=== PATIENT | female | born 1965 | race Caucasian/White ===

== ENCOUNTER 2017-06-29 11:15 | Inpatient (IN) | payer OTHER ==
[2017-06-29] MEDS ORDERED: SODIUM CHLORIDE 0.9% 2,000 ML IV STA (11:34)
[2017-06-29] MEDS ORDERED: ONDANSETRON 4 MG/2 ML VIAL IVP STA (11:34)
[2017-06-29] MEDS ORDERED: LORazepam 2 MG/ML INJ IV STA (11:35)
[2017-06-29 12:19] LABS: Basophils % (A) 0 %; Eosinophils # (A) 0.1 k/uL (0-0.7); Eosinophils % (A) 1 %; HCT 50.2 % (34.0-46.0); HGB 17.8 gm/dL (11.4-16.0); Lymphocytes # (A) 1.9 k/uL (1.0-4.8); Lymphocytes % (A) 10 %; MCH 31.2 pg (25.0-35.0); MCHC 35.4 g/dL (31.0-37.0); MCV 88.3 fL (80.0-100.0); Mean Platelet Volume 7.3; Monocytes # (A) 0.6 k/uL (0-1.0); Monocytes % (A) 3 %; Neutrophils # (A) 16.2 k/uL (1.3-7.7); Neutrophils % (A) 86 %; Platelet Count 271 k/uL (150-450); RBC 5.69 m/uL (3.80-5.40); RDW 12.4 % (11.5-15.5)
--- NOTE | 2017-06-29 12:30 | ED ---
Nausea/Vomiting/Diarrhea HPI - General Chief complaint: Nausea/Vomiting/Diarrhea Stated complaint: Vomiting Time Seen by Provider: 06/29/17 11:27 Source: patient, RN notes reviewed Mode of arrival: wheelchair Limitations: no limitations - History of Present Illness Initial comments: Is a 51-year-old female presents emergency Department with chief complaint nausea vomiting. She states his been going on since Wednesday night into Wednesday. She states that she's had problems with this in the past she states normally last 3-5 days and she believes this is related to her blood sugar. She states that her blood sugar is low. Patient denies any headache, dizziness , chest pain, shortness of breath, fever or chills. She's had no diarrhea no constipation denies any sick contacts. - Related Data Home Medications Medication Instructions Recorded Confirmed Black Cohosh 540 mg PO DAILY 06/29/17 06/29/17 Cholecalciferol [Vitamin D3] 1,000 unit PO DAILY 06/29/17 06/29/17 Multivitamins, Thera [Multivitamin 1 tab PO DAILY 06/29/17 06/29/17 (formulary)] Merrill-3 Fatty Acids/Fish Oil [Fish 1 cap PO DAILY 06/29/17 06/29/17 Oil 1,000 mg Softgel] Vitamin E 100 unit PO DAILY 06/29/17 06/29/17 diphenhydrAMINE [Benadryl] 25 mg PO QID PRN 06/29/17 06/29/17 Allergies Allergy/AdvReac Type Severity Reaction Status Date / Time No Known Allergies Allergy Verified 06/29/17 12:42 Review of Systems ROS Statement: Those systems with pertinent positive or pertinent negative responses have been documented in the HPI. ROS Other: All systems not noted in ROS Statement are negative. Past Medical History Additional Past Medical History / Comment(s): low blood sugar History of Any Multi-Drug Resistant Organisms: None Reported Past Surgical History: No Surgical Hx Reported Past Psychological History: No Psychological Hx Reported Smoking Status: Never smoker Past Alcohol Use History: None Reported Past Drug Use History: None Reported General Exam Limitations: no limitations General appearance: alert, in no apparent distress, anxious Head exam: Present: atraumatic, normocephalic, normal inspection Eye exam: Present: normal appearance, PERRL, EOMI. Absent: scleral icterus, conjunctival injection, periorbital swelling ENT exam: Present: normal exam, mucous membranes moist Neck exam: Present: normal inspection, full ROM. Absent: tenderness, meningismus, lymphadenopathy Respiratory exam: Present: normal lung sounds bilaterally. Absent: respiratory distress, wheezes, rales, rhonchi, stridor Cardiovascular Exam: Present: regular rate, normal rhythm, normal heart sounds. Absent: systolic murmur, diastolic murmur, rubs, gallop, clicks GI/Abdominal exam: Present: soft, normal bowel sounds. Absent: distended, tenderness, guarding, rebound, rigid Neurological exam: Present: alert, oriented X3, CN II-XII intact, reflexes normal. Absent: motor sensory deficit Skin exam: Present: warm, dry, intact, normal color. Absent: rash Course Vital Signs 06/29/17 06/29/17 06/29/17 11:15 13:47 14:37 Temperature 98 F Pulse Rate 99 97 89 Respiratory 20 18 18 Rate Blood Pressure 137/90 189/94 202/92 O2 Sat by Pulse 98 98 96 Oximetry Medical Decision Making - Medical Decision Making 51-year-old female presented for nausea vomiting. Patient's and intractable nausea vomiting. She's been given some medications in the ER still feels nauseated. Patient is found to be hypertensive, dehydrated and hemoconcentrated. Patient will be admitted at this time. - Lab Data Result diagrams: 06/29/17 12:04 06/29/17 12:04 Lab Results 06/29/17 06/29/17 06/29/17 Range/Units 12:04 12:04 12:09 WBC 19.0 H (3.8-10.6) k/uL RBC 5.69 H (3.80-5.40) m/uL Hgb 17.8 H (11.4-16.0) gm/dL Hct 50.2 H (34.0-46.0) % MCV 88.3 (80.0-100.0) fL MCH 31.2 (25.0-35.0) pg MCHC 35.4 (31.0-37.0) g/dL RDW 12.4 (11.5-15.5) % Plt Count 271 (150-450) k/uL Neutrophils % 86 % Lymphocytes % 10 % Monocytes % 3 % Eosinophils % 1 % Basophils % 0 % Neutrophils # 16.2 H (1.3-7.7) k/uL Lymphocytes # 1.9 (1.0-4.8) k/uL Monocytes # 0.6 (0-1.0) k/uL Eosinophils # 0.1 (0-0.7) k/uL Basophils # 0.0 (0-0.2) k/uL Sodium 141 (137-145) mmol/L Potassium 4.0 (3.5-5.1) mmol/L Chloride 106 (98-107) mmol/L Carbon Dioxide 15 L (22-30) mmol/L Anion Gap 20 mmol/L BUN 26 H (7-17) mg/dL Creatinine 0.83 (0.52-1.04) mg/dL Est GFR (CKD-EPI)AfAm >90 (>60 ml/min/1.73 sqM) Est GFR (CKD-EPI)NonAf 81 (>60 ml/min/1.73 sqM) Glucose 119 H (74-99) mg/dL POC Glucose (mg/dL) 115 H (75-99) mg/dL POC Glu Turret Lathe Operator ID Plasma Lactic Acid Tj (0.7-2.0) mmol/L Calcium 11.0 H (8.4-10.2) mg/dL Total Bilirubin 1.0 (0.2-1.3) mg/dL AST 41 H (14-36) U/L ALT 32 (9-52) U/L Alkaline Phosphatase 115 (38-126) U/L Total Protein 8.1 (6.3-8.2) g/dL Albumin 5.2 H (3.5-5.0) g/dL Amylase 96 (30-110) U/L Lipase 125 (23-300) U/L Urine Color Urine Appearance (Clear) Urine pH (5.0-8.0) Ur Specific [place] (1.001-1.035) Urine Protein (Negative) Urine Glucose (UA) (Negative) Urine Ketones (Negative) Urine Blood (Negative) Urine Nitrite (Negative) Urine Bilirubin (Negative) Urine Urobilinogen (<2.0) mg/dL Ur Leukocyte Esterase (Negative) Urine RBC (0-5) /hpf Urine WBC (0-5) /hpf Ur Squamous Epith Cells (0-4) /hpf Urine Bacteria (None) /hpf Urine Mucus (None) /hpf 06/29/17 06/29/17 Range/Units 13:51 14:05 WBC (3.8-10.6) k/uL RBC (3.80-5.40) m/uL Hgb (11.4-16.0) gm/dL Hct (34.0-46.0) % MCV (80.0-100.0) fL MCH (25.0-35.0) pg MCHC (31.0-37.0) g/dL RDW (11.5-15.5) % Plt Count (150-450) k/uL Neutrophils % % Lymphocytes % % Monocytes % % Eosinophils % % Basophils % % Neutrophils # (1.3-7.7) k/uL Lymphocytes # (1.0-4.8) k/uL Monocytes # (0-1.0) k/uL Eosinophils # (0-0.7) k/uL Basophils # (0-0.2) k/uL Sodium (137-145) mmol/L Potassium (3.5-5.1) mmol/L Chloride (98-107) mmol/L Carbon Dioxide (22-30) mmol/L Anion Gap mmol/L BUN (7-17) mg/dL Creatinine (0.52-1.04) mg/dL Est GFR (CKD-EPI)AfAm (>60 ml/min/1.73 sqM) Est GFR (CKD-EPI)NonAf (>60 ml/min/1.73 sqM) Glucose (74-99) mg/dL POC Glucose (mg/dL) (75-99) mg/dL POC Glu Turret Lathe Operator ID Plasma Lactic Acid Tj 0.7 (0.7-2.0) mmol/L Calcium (8.4-10.2) mg/dL Total Bilirubin (0.2-1.3) mg/dL AST (14-36) U/L ALT (9-52) U/L Alkaline Phosphatase (38-126) U/L Total Protein (6.3-8.2) g/dL Albumin (3.5-5.0) g/dL Amylase (30-110) U/L Lipase (23-300) U/L Urine Color Yellow Urine Appearance Clear (Clear) Urine pH 6.0 (5.0-8.0) Ur Specific [place] >1.050 H (1.001-1.035) Urine Protein 1+ H (Negative) Urine Glucose (UA) Negative (Negative) Urine Ketones 2+ H (Negative) Urine Blood Small H (Negative) Urine Nitrite Positive H (Negative) Urine Bilirubin Negative (Negative) Urine Urobilinogen <2.0 (<2.0) mg/dL Ur Leukocyte Esterase Negative (Negative) Urine RBC 4 (0-5) /hpf Urine WBC 3 (0-5) /hpf Ur Squamous Epith Cells 3 (0-4) /hpf Urine Bacteria Many H (None) /hpf Urine Mucus Rare H (None) /hpf Disposition Clinical Impression: Intractable nausea and vomiting, Dehydration, Hypertension, Abdominal pain Disposition: ADMITTED IP TO THIS [facility] Condition: Fair Referrals: None,Stated [Primary Care Provider] - 1-2 days
[2017-06-29 12:32] LABS: ALT 32 U/L (9-52); AST 41 U/L (14-36); Albumin 5.2 g/dL (3.5-5.0); Alkaline Phosphatase 115 U/L (38-126); Amylase 96 U/L (30-110); Anion Gap 20 mmol/L; Blood Urea Nitrogen 26 mg/dL (7-17); Carbon Dioxide 15 mmol/L (22-30); Chloride 106 mmol/L (98-107); Glucose 119 mg/dL (74-99); Lipase 125 U/L (23-300); Sodium 141 mmol/L (137-145); Total Protein 8.1 g/dL (6.3-8.2)
[2017-06-29 12:36] LABS: Glucose,Whole Blood 115 mg/dL (75-99)
[2017-06-29] MEDS ORDERED: RX INFO: IV CONTRAST WAS GIVEN 1 EACH MISC MISCELLANE PRN (12:57)
[2017-06-29] MEDS ORDERED: KETOROLAC 30 MG/ML 1 ML VIAL IVP STA (13:55)
[2017-06-29] MEDS ORDERED: SODIUM CHLORIDE 0.9% 500 ML IV ONE (13:55)
--- NOTE | 2017-06-29 13:58 | CT ---
EXAMINATION TYPE: CT abdomen pelvis w con DATE OF EXAM: 06/29/2017 COMPARISON: NONE HISTORY: Patient complains of nausea, vomiting, and generalized body aches. CT DLP: 819 mGycm Automated exposure control for dose reduction was used. TECHNIQUE: Helical acquisition of images from the lung bases through the pelvis have been completed. CONTRAST: Performed without Oral Contrast and with IV Contrast, patient injected with 100 mL of Isovue 300. FINDINGS: LUNG BASES: Emphysematous changes are suspected, thickened parenchymal bands are noted, suspect some emphysematous changes, no pleural or pericardial effusion AORTA: Mild atheromatous changes present LIVER/GB: No significant abnormality is appreciated. PANCREAS: No significant abnormality is seen. SPLEEN: Small calcifications towards the renal hilum may be vascular. ADRENALS: No significant abnormality is seen. KIDNEYS: Focus of decreased attenuation is present at the posterior aspect lower pole of the right ki dney measuring approximately 14 mm. There is cortical thinning also present at the lower pole left ki dney. Nonobstructive calculus may be present within the mid pole left collecting system, suspect a du plicated collecting system is present on the left. REPRODUCTIVE ORGANS: No significant abnormality is seen BOWEL: No significant abnormality is seen. No evident appendicitis. FREE AIR: No Free Air visible. ASCITES: None visible. PELVIC ADENOPATHY: None visualized. RETROPERITONEAL ADENOPATHY: No Retroperitoneal Adenopathy visible. URINARY BLADDER: No significant abnormality is seen. OSSEOUS STRUCTURES: There is a spinal curvature and lumbar spine. IMPRESSION: NO ABNORMALITY TO ACCOUNT FOR PATIENT'S SYMPTOMS. SUSPECT NONOBSTRUCTIVE LEFT NEPHROLITHIASIS. CORTIC AL THINNING LEFT KIDNEY MAY BE DUE TO REFLUX NEPHROPATHY. LOW-ATTENUATION FOCUS IN THE POSTERIOR RIGH T KIDNEY BE DUE TO UNDERLYING ANGIOMYOLIPOMA, RENAL MASS, FOLLOW-UP IS RECOMMENDED. ADDITIONAL FINDIN GS ABOVE.
[2017-06-29 14:26] LABS: Appearance,Urine Clear (Clear); Bacteria,Urine Many /hpf; Bilirubin,Urine Negative (Negative); Blood,Urine Small (Negative); Color,Urine Yellow; Glucose,Urine (UA) Negative (Negative); Ketones,Urine 2+ (Negative); Leukocyte Esterase,Urine Negative (Negative); Mucus,Urine Rare /hpf; Nitrite,Urine Positive (Negative); Protein,Urine 1+ (Negative); RBC,Urine 4 /hpf (0-5); Specific Gravity,Urine >1.050 (1.001-1.035); Squamous Epithelial Cell,Urine 3 /hpf (0-4); Urobilinogen,Urine <2.0 mg/dL (<2.0); WBC,Urine 3 /hpf (0-5)
[2017-06-29] MEDS ORDERED: hydrALAZINE HCL 20 MG/ML 1 ML VIAL IVP STA (14:39)
[2017-06-29] MEDS ORDERED: METOCLOPRAMIDE 5 MG/ML 2 ML VIAL IVP STA (14:40)
[2017-06-29] MEDS ORDERED: NALOXONE 0.4 MG/ML 1 ML VIAL IV PRN (14:43)
[2017-06-29] MEDS ORDERED: LORazepam 2 MG/ML INJ IV PRN (14:43)
[2017-06-29] MEDS ORDERED: KETOROLAC 30 MG/ML 1 ML VIAL IVP PRN (14:43)
[2017-06-29] MEDS ORDERED: ONDANSETRON 4 MG/2 ML VIAL IVP PRN (14:43)
[2017-06-29] MEDS ORDERED: hydrALAZINE HCL 20 MG/ML 1 ML VIAL IVP PRN (14:44)
[2017-06-29] MEDS ORDERED: diphenhydrAMINE 50 MG/ML 1 ML VIAL IVP STA (16:41)
[2017-06-29] MEDS: SODIUM CHLORIDE 0.9% 1,000 ML IV SCH (16:45)
[2017-06-29 17:15] LABS: Amphetamine Screen,Urine Not Detected (NotDetected); Cocaine Screen,Urine Not Detected (NotDetected); Opiate Screen,Urine Not Detected (NotDetected); Phencyclidine Screen,Urine Not Detected (NotDetected); Urn Cannabinoid Scrn Detected (NotDetected)
[2017-06-29 17:16] LABS: Barbiturate Screen,Urine Not Detected (NotDetected); Benzodiazepines Screen,Urine Detected (NotDetected); Methadone Screen, Urine Not Detected (NotDetected); Oxycodone Screen, Urine Not Detected (NotDetected); Tricyclic Antidepressant,Urine Not Detected (NotDetected)
[2017-06-29] MEDS ORDERED: amLODIPine 5 MG TAB PO STA (18:51)
--- NOTE | 2017-06-30 00:53 | P.HPIM ---
History of Present Illness H&P Date: 06/29/17 Chief Complaint: Nausea and vomiting Patient is a 51-year-old female without significant past medical history presents emergency Department with chief complaint nausea vomiting. She states his been going on since Wednesday night into Wednesday. She states that she's had problems with this in the past she states normally last 3-5 days and she believes this is related to her blood sugar. She states that her blood sugar is low. Patient denies any headache, dizziness, chest pain, shortness of breath , fever or chills. She's had no diarrhea no constipation denies any sick contacts. Denied any recent illnesses. UDS is positive for benzodiazepines and marijuana. CT abdomen pelvis showed nonobstructive bowel gas pattern. Left nephrolithiasis nonobstructive. Patient says that her face became red after given a dose of Reglan in the ER. Benadryl was given. Review of Systems Constitutional: Patient denies any fever or chills . No generalized weakness or weight loss. Abdomen: Nausea and vomiting. Denied abdominal pain. No diarrhea. No dysuria. Cardiovascular: Patient denies any chest pain or short of breath no palpitations. Respiratory: patient denied any cough is from production. No shortness of breath Neurologic: Patient denied any numbness or tingling headache. Musculoskeletal: Patient denies any complaints of joint swelling or deformity. Skin: Negative Psychiatric: Anxious Endocrine: No heat or cold intolerance. No recent weight gain. Genitourinary: No dysuria or hematuria. All other 14 point ROS negative except the above Past Medical History Additional Past Medical History / Comment(s): low blood sugar History of Any Multi-Drug Resistant Organisms: None Reported Past Surgical History: No Surgical Hx Reported Past Anesthesia/Blood Transfusion Reactions: No Reported Reaction Past Psychological History: No Psychological Hx Reported Smoking Status: Never smoker Past Alcohol Use History: None Reported Past Drug Use History: None Reported - Past Family History Father History Unknown: Yes Medications and Allergies Home Medications Medication Instructions Recorded Confirmed Type Black Cohosh 540 mg PO DAILY 06/29/17 06/29/17 History Cholecalciferol [Vitamin D3] 1,000 unit PO DAILY 06/29/17 06/29/17 History Ibuprofen [Motrin] 600 mg PO Q8HR PRN 06/29/17 06/29/17 History Multivitamins, Thera [Multivitamin 1 tab PO DAILY 06/29/17 06/29/17 History (formulary)] Adel-3 Fatty Acids/Fish Oil [Fish 1 cap PO DAILY 06/29/17 06/29/17 History Oil 1,000 mg Softgel] Vitamin E 100 unit PO DAILY 06/29/17 06/29/17 History diphenhydrAMINE [Benadryl] 25 mg PO QID PRN 06/29/17 06/29/17 History Allergies Allergy/AdvReac Type Severity Reaction Status Date / Time metoclopramide [From Reglan] AdvReac Confusion Verified 06/29/17 17:27 Physical Exam Vitals: Vital Signs Temp Pulse Pulse Resp BP BP Pulse Ox 06/29/17 18:12 114 H 97 06/29/17 17:03 98.3 F 124 H 20 153/71 96 06/29/17 16:40 98 18 140/70 98 06/29/17 16:16 98.9 F 123 H 20 135/65 95 06/29/17 16:00 124 H 06/29/17 15:45 101 H 20 163/74 96 06/29/17 15:00 98.3 F 124 H 20 153/71 96 06/29/17 14:37 89 18 202/92 96 06/29/17 13:47 97 18 189/94 98 06/29/17 11:15 98 F 99 20 137/90 98 Intake and Output 06/29/17 06/29/17 06/29/17 06:59 14:59 22:59 Other: Voiding Method Toilet Weight 51.256 kg PHYSICAL EXAMINATION: Patient is lying in the bed comfortably, no acute distress, awake alert and oriented.. HEENT: Normocephalic. Neck is supple. Pupils reactive. Nostrils clear. Oral cavity is moist. Ears reveal no drainage. Neck reveals no JVD, carotid bruits, or thyromegaly. CHEST EXAMINATION: Trachea is central. Symmetrical expansion. Lung chau clear to auscultation and percussion. CARDIAC: Normal S1, S2 with no gallops. No murmurs ABDOMEN: Soft. Bowel sounds normal. No organomegaly. No abdominal bruits. Extremities: reveal no edema. No clubbing or cyanosis Neurologically awake, alert, oriented x3 with well-coordinated movements. No focal deficits noted Skin: No rash or skin lesions. Psychiatric: Coperative. Anxious. Nonsuicidal Musculoskeletal: No joint swelling or deformity. Normal range of motion. Results CBC & Chem 7: 06/29/17 12:04 06/29/17 12:04 Labs: Abnormal Lab Results - Last 24 Hours (Table) 06/29/17 06/29/17 06/29/17 Range/Units 12:04 12:04 12:09 WBC 19.0 H (3.8-10.6) k/uL RBC 5.69 H (3.80-5.40) m/uL Hgb 17.8 H (11.4-16.0) gm/dL Hct 50.2 H (34.0-46.0) % Neutrophils # 16.2 H (1.3-7.7) k/uL Carbon Dioxide 15 L (22-30) mmol/L BUN 26 H (7-17) mg/dL Glucose 119 H (74-99) mg/dL POC Glucose (mg/dL) 115 H (75-99) mg/dL Calcium 11.0 H (8.4-10.2) mg/dL AST 41 H (14-36) U/L Albumin 5.2 H (3.5-5.0) g/dL Ur Specific [place] (1.001-1.035) Urine Protein (Negative) Urine Ketones (Negative) Urine Blood (Negative) Urine Nitrite (Negative) Urine Bacteria (None) /hpf Urine Mucus (None) /hpf U Benzodiazepines Scrn (NotDetected) U Marijuana (THC) Screen (NotDetected) 06/29/17 06/29/17 Range/Units 14:05 15:00 WBC (3.8-10.6) k/uL RBC (3.80-5.40) m/uL Hgb (11.4-16.0) gm/dL Hct (34.0-46.0) % Neutrophils # (1.3-7.7) k/uL Carbon Dioxide (22-30) mmol/L BUN (7-17) mg/dL Glucose (74-99) mg/dL POC Glucose (mg/dL) (75-99) mg/dL Calcium (8.4-10.2) mg/dL AST (14-36) U/L Albumin (3.5-5.0) g/dL Ur Specific [place] >1.050 H (1.001-1.035) Urine Protein 1+ H (Negative) Urine Ketones 2+ H (Negative) Urine Blood Small H (Negative) Urine Nitrite Positive H (Negative) Urine Bacteria Many H (None) /hpf Urine Mucus Rare H (None) /hpf U Benzodiazepines Scrn Detected H (NotDetected) U Marijuana (THC) Screen Detected H (NotDetected) Thrombosis Risk Factor Assmnt - Choose All That Apply Any of the Below Risk Factors Present?: Yes Each Factor Represents 1 point: Age 41-60 years Other Risk Factors: No Thrombosis Risk Factor Assessment Total Risk Factor Score: 1 Thrombosis Risk Factor Assessment Level: Low Risk Assessment and Plan Assessment: Intractable nausea and vomiting possible cyclic vomiting from marijuana use Aniongap metabolic acidosis Leukocytosis likely reactive Abnormal urine sample due to dehydration UDS positive for benzodiazepines and marijuana Anxiety Left nonobstructive nephrolithiasis DVT prophylaxis Uncontrolled hypertension on admission Plan: Patient will be continued on symptomatic management for nausea and vomiting. IV hydration and monitor blood pressure. Will repeat labs in the a.m. and monitor for any other source of infection. Patient may need outpatient urology follow-up. Counseled for marijuana abuse. Further recommendations based on the clinical course. Time with Patient: Greater than 30
[2017-06-30] MEDS: SODIUM CHLORIDE 0.9% 1,000 ML IV SCH ×2 (01:48→11:19)
[2017-06-30 07:26] LABS: Basophils # (A) 0.1 k/uL (0-0.2); Basophils % (A) 1 %; Eosinophils % (A) 0 %; HCT 40.8 % (34.0-46.0); Lymphocytes # (A) 2.9 k/uL (1.0-4.8); Lymphocytes % (A) 31 %; MCH 32.3 pg (25.0-35.0); MCHC 34.7 g/dL (31.0-37.0); Mean Platelet Volume 7.1; Monocytes # (A) 0.5 k/uL (0-1.0); Monocytes % (A) 5 %; Neutrophils # (A) 5.7 k/uL (1.3-7.7); Neutrophils % (A) 61 %; Platelet Count 192 k/uL (150-450); RBC 4.39 m/uL (3.80-5.40); RDW 12.3 % (11.5-15.5); WBC 9.4 k/uL (3.8-10.6)
[2017-06-30 07:28] LABS: HGB 14.2 gm/dL (11.4-16.0)
[2017-06-30 07:39] LABS: Anion Gap 10 mmol/L; Blood Urea Nitrogen 19 mg/dL (7-17); Carbon Dioxide 20 mmol/L (22-30); Chloride 113 mmol/L (98-107); Glucose 83 mg/dL (74-99); Potassium 3.5 mmol/L (3.5-5.1); Sodium 143 mmol/L (137-145)
[2017-06-30 08:25] VITALS: TEMP 98
[2017-06-30] MEDS ORDERED: PANTOPRAZOLE 40 MG/10 ML VIAL IV SCH (09:00)
[2017-06-30] MEDS ORDERED: amLODIPine 5 MG TAB PO SCH (09:00)
[2017-06-30 11:40] VITALS: BP 138/78; PULSE 79; RESP 18
--- NOTE | 2017-06-30 12:14 | CDI ---
Last Revision, January 2017 Documentation Clarification Form Date: 06/30/17 1211 From: Carolin Schneider RN, CCDS Admit Date: 06/29/2017 2:41:00 PM Patient Name: Yasmeen Rodriguez Visit Number: [id number] ATTENTION: The Clinical Documentation Specialists (CDI) and [facility] Coding Staff appreciate your assistance in clarifying documentation. Please respond to the clarification below the line at the bottom and electronically sign. The CDI & [facility] Coding staff will review the response and follow-up if needed. Please note: Queries are made part of the Legal Health Record. If you have any questions, please contact the author of this message via ITS. Dr. Heike Tony History/Risk Factors: 06/29/17 H&P: "Intractable nausea and vomiting possible cyclic vomiting from marijuana use. Dehydration" Clinical Indicators: Patients weight is 51.25 kg Patients height is 70 in Calculated BMI is: 16.2 Treatments: Daily weights per MD orders Dietary Consult: not ordered Possible infusion (e.g. TPN): not ordered Administration of vitamins/supplements (e.g. Ensure/Boost): not ordered. Warehouse [employer], physical therapy notes: not ordered In order to capture the severity of condition associated with patient BMI of 16.2, a clinical diagnoses needs to be documented by the physician. Please clarify: Emaciated Cachexia Underweight Protein Calorie Malnutrition, (further specify severity and type- Mild, Moderate , Severe) Other Unable to determine Please continue to document in your progress notes and discharge summary in order to capture severity of illness and risk of mortality. Include clinical findings that support your diagnosis. Underweight MTDD
== END 2017-06-30 12:50 | disposition home or self-care (01) | DRG 918 ==
LOC: EC 11:15 → 6PED 14:41
PROVIDERS: ADMIT Internal Medicine; ATTEND Internal Medicine
DX: T40.7X1A Poisoning by cannabis (derivatives), accidental (unintentional), initial encounter (principal); E87.2 Acidosis; Z68.1 Body mass index [BMI] 19.9 or less, adult; R11.2 Nausea with vomiting, unspecified; F12.10 Cannabis abuse, uncomplicated; D72.829 Elevated white blood cell count, unspecified; E86.0 Dehydration; F41.9 Anxiety disorder, unspecified; I10 Essential (primary) hypertension; N20.0 Calculus of kidney; E16.2 Hypoglycemia, unspecified; Z88.8 Allergy status to other drugs, medicaments and biological substances; R63.6 Underweight
CPT/HCPCS: 36415; 74177; 80048; 80053; 80306; 81001; 82150; 83605; 83690; 85025; 87077; 87086; 87186; 96361; 96374; 96375; 99285